=== PATIENT | male | born 1995 | race Caucasian/White ===

== ENCOUNTER 2017-01-10 20:38 | Emergency (ER) | payer MEDICAID ==
--- NOTE | ~2017-01-10 | ER ---
[facility] AGE[facility] 21 Y [address] ROOM: [place] [address] LOCATION: [facility] ADMIT DATE: 01/10/2017 ER/Outpatient Report DISCHARGE DATE: FAMILY PHYSICIAN: Reynaldo Machado MD ATTENDING PHYSICIAN: Yuan Robertson SEEN AT: 2050 hours. CHIEF COMPLAINT: Right wrist pain. HISTORY OF PRESENT ILLNESS: The patient is a 21-year-old male, who had a heavy front door slam on his right wrist, complains of pain in the distal forearm. Denies any numbness or tingling. ALLERGIES: SULFA AND AMOXICILLIN. CURRENT MEDICATIONS: 1. Steroid pack. 2. Flexeril. PAST MEDICAL HISTORY: History of chronic back pain and head injuries. SURGERIES: None. SOCIAL HISTORY: Quit smoking 2 years ago. Alcohol rarely. REVIEW OF SYSTEMS: All negative except for the musculoskeletal, right distal forearm pain. OBJECTIVE FINDINGS: VITAL SIGNS: Vital reviewed. EXTREMITIES: Exam of the right forearm does not show any significant swelling or bruising. Has good radial pulse. He was tender to palpation. LABORATORY DATA AND X-RAYS: X-rays of right wrist showed no fractures. ASSESSMENT: PATIENT'S NAME: [facility] AGE: 21 Y [address] ROOM: [place] [address] LOCATION: [facility] ADMIT DATE: 01/10/2017 ER/Outpatient Report DISCHARGE DATE: FAMILY PHYSICIAN: Reynaldo Machado MD ATTENDING PHYSICIAN: Yuan Robertson Contused right distal forearm. PLAN: Recommend ice 10 to 15 minutes every couple hours. Ibuprofen for pain. Follow up as needed. KATHLEEN MENENDEZ FOR MD MAY MURILLO/fabio /[id number] d: 01/10/174 t: 01/19/176, OUTPATIENT REPORT
== END 2017-01-10 21:00 | disposition disaster alternative care site (69) ==
LOC: GACC 20:38
DX: S60.211A Contusion of right wrist, initial encounter (principal); G89.29 Other chronic pain; Z88.1 Allergy status to other antibiotic agents; Z88.2 Allergy status to sulfonamides; Z79.52 Long term (current) use of systemic steroids; Z87.828 Personal history of other (healed) physical injury and trauma; Z87.891 Personal history of nicotine dependence; W22.8XXA Striking against or struck by other objects, initial encounter

== ENCOUNTER 2017-01-30 15:43 | Emergency (ER) | payer MEDICAID ==
--- NOTE | ~2017-01-30 | ER ---
[facility] AGE: 21 Y [address] ROOM: [place] [address] LOCATION: [facility] ADMIT DATE: 01/30/2017 ER/Outpatient Report DISCHARGE DATE: 01/30/2017 FAMILY PHYSICIAN: Reynaldo Machado MD ATTENDING PHYSICIAN: Gabriel Yuen Time of Arrival: 1543 hours. Time of Evaluation: 1555 hours. CHIEF COMPLAINT: Back pain. HISTORY OF PRESENT ILLNESS: This is a 21-year-old male, who presents to the ER, states he is having some low back pain for the past 2 hours. The patient states he has a previous back injury in the past and he states it did improve with some physical therapy, Flexeril, and some steroids. He states today he was working on mechanical things on his car. States he was sitting in the peg driver seat, drilling into the ignition when he started having pain in his back. He was not lifting anything heavy. He states he has no troubles with bowel movements or urination. He states he has a little bit of pain that radiates down his left leg, but it mostly stays in his back. He denies any other problems at this time. He did not take anything for his pain prior to arrival. He states he is also needing a work note. ALLERGIES: PLEASE SEE MEDICATION LIST NURSE'S NOTES. MEDICATIONS: Please see medication list nurse's notes. PAST MEDICAL HISTORY: He has a current sinus infection, which he is on antibiotic for. 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 SOCIAL HISTORY: Drinks alcohol rarely. Denies any smoking or drug use. REVIEW OF SYSTEMS: CONSTITUTIONAL: Denies any change in weight or fatigue. MUSCULOSKELETAL: He is complaining of low back pain. : No dysuria. Increased frequency. GI: No troubles with bowel movements. No abdominal pain. SKIN: No lesions or rashes. PATIENT'S NAME: DARSHAN [facility] AGE: 21 Y [address] ROOM: [place] [address] LOCATION: [facility] ADMIT DATE: 01/30/2017 ER/Outpatient Report DISCHARGE DATE: 01/30/2017 FAMILY PHYSICIAN: Reynaldo Machado MD ATTENDING PHYSICIAN: Gabriel Yuen PHYSICAL EXAMINATION: VITAL SIGNS: Height 5 feet and 8-1/2 inches stated, weight 69.7 kg taken, blood pressure is 127/78, pulse 86, respirations 16, temperature 98.2 degrees tympanically, and saturations 97% on room air. [place] Coma Score is 15. GENERAL: Alert, calm, well-developed male, in mild distress. LUNGS: Clear to auscultation bilaterally. No wheezes or crackles. HEART: Regular rate and rhythm. ABDOMEN: Soft. It is nontender. MUSCULOSKELETAL: He has no tenderness over his cervical or thoracic spine. He does have some tenderness over the paraspinous muscles of his lumbar spine with palpation. He does have equal strength bilaterally in the lower and upper extremities. He has good sensation distally to his lower extremities as well. Gait was steady without limp. LABORATORY DATA AND X-RAYS: None were done. IMPRESSION: Acute on chronic low back pain. ASSESSMENT AND PLAN: We will dismiss the patient home with a prescription for Flexeril and prednisone to use as directed. I also wrote him a prescription for physical therapy to evaluate and treat him. I did provide him with a work note and I would like him to follow up with his primary care physician on Wednesday if he is not improving. The patient understands and agrees with care. CARSON OVERTON PA-C FOR MD AMISHA GRIGGS/fabio /[id number] d: 01/31/17 0059 t: 02/16/17 1214, OUTPATIENT REPORT
== END 2017-01-30 16:28 | disposition disaster alternative care site (69) ==
LOC: GACC 15:43
DX: G89.29 Other chronic pain (principal); M54.5 Low back pain; J32.9 Chronic sinusitis, unspecified; Z89.022 Acquired absence of left finger(s); Z87.39 Personal history of other diseases of the musculoskeletal system and connective tissue; Z88.1 Allergy status to other antibiotic agents; Z88.2 Allergy status to sulfonamides; Z87.828 Personal history of other (healed) physical injury and trauma